=== PATIENT | male | born 1980 | race Caucasian/White ===

== ENCOUNTER 2018-01-08 16:09 | Inpatient (IN) | payer BC ==
[2018-01-08 16:50] LABS: ADD MAN DIFF? NO
[2018-01-08] MEDS: SOD CHLORIDE 0.9% 1,000 ML IV ×2 (16:52→18:26)
[2018-01-08] MEDS: DILTIAZEM 25 MG INJ IV (16:52)
[2018-01-08 16:54] LABS: WHITE BLOOD COUNT 10.3 10^3/ul (4.8-10.8)
[2018-01-08 16:54] LABS: BASOPHILS % 0.4 % (0.0-2.0); EOSINOPHILS # 0.1 10^3/ul (0.0-0.5); EOSINOPHILS % 1.1 % (0.0-7.0); HEMATOCRIT 46.2 % (42.0-52.0); HEMOGLOBIN 16.5 g/dl (14.0-18.0); LYMPHOCYTES % 28.6 % (15.0-51.0); MEAN CORPUSCULAR HEMOGLOBIN 30.6 pg (29.0-33.0); MEAN CORPUSCULAR HGB CONC 35.7 g/dl (32.0-37.0); MEAN CORPUSCULAR VOLUME 85.7 fl (82.0-101.0); MEAN PLATELET VOLUME 10.1 fl (7.4-10.4); MONOCYTE # 1.1 10^3/ul (0.3-0.9); MONOCYTES % 10.5 % (0.0-11.0); NEUTROPHIL # 6.1 10^3/ul (1.6-7.5); NEUTROPHILS % 59.1 % (39.0-77.0); PLATELET COUNT 210 10^3/UL (140-415); RED BLOOD COUNT 5.39 10^6/ul (4.70-6.10); RED CELL DISTRIBUTION WIDTH 12.7 % (11.5-14.5)
[2018-01-08 17:43] LABS: ANION GAP 14 (8-16); BLOOD UREA NITROGEN 14 mg/dl (7-20); CALCIUM 9.5 mg/dl (8.4-10.2); CARBON DIOXIDE 23 mmol/L (21-31); CHLORIDE 110 mmol/L (97-110); CREATININE 0.93 mg/dl (0.61-1.24); GLUCOSE 102 mg/dl (70-220); POTASSIUM 4.4 mmol/L (3.5-5.1); SODIUM 143 mmol/L (135-144)
[2018-01-08 17:55] LABS: B-TYPE NATRIURETIC PEPTIDE 66 PG/ML (0-125); TROPONIN-I < 0.010 ng/ml (0.000-0.120)
[2018-01-08] MEDS ORDERED: IOHEXOL 100 ML (18:07)
[2018-01-08] MEDS ORDERED: SOD CHLORIDE 0.9% 100 ML (18:07)
[2018-01-08] MEDS: ONDANSETRON 4 MG INJ IV (19:39)
[2018-01-08 19:51] LABS: FREE T3 4.39 pg/ml (2.77-5.27)
[2018-01-08] MEDS ORDERED: ONDANSETRON 4 MG INJ IV (20:00)
[2018-01-08] MEDS ORDERED: ACETAMINOPHEN 325 MG TAB PO (20:00)
[2018-01-08] MEDS: ASPIRIN 81 MG TAB PO (20:21)
[2018-01-08 22:37] LABS: CREATINE KINASE 120 IU/L (23-200)
[2018-01-08] MEDS: METOPROLOL 25 MG TAB PO (22:47)
[2018-01-08 22:54] LABS: CK INDEX 0.5; CK-MB 0.55 ng/ml (0.0-2.4); TROPONIN-I < 0.010 ng/ml (0.000-0.120)
[2018-01-09 06:46] LABS: ADD MAN DIFF? NO
[2018-01-09 06:51] LABS: WHITE BLOOD COUNT 10.5 10^3/ul (4.8-10.8)
[2018-01-09 06:51] LABS: BASOPHIL # 0.1 10^3/ul (0.0-0.1); BASOPHILS % 0.5 % (0.0-2.0); EOSINOPHILS # 0.2 10^3/ul (0.0-0.5); EOSINOPHILS % 2.1 % (0.0-7.0); HEMATOCRIT 46.9 % (42.0-52.0); HEMOGLOBIN 16.5 g/dl (14.0-18.0); LYMPHOCYTES # 3.6 10^3/ul (0.8-2.9); LYMPHOCYTES % 33.9 % (15.0-51.0); MEAN CORPUSCULAR HEMOGLOBIN 30.4 pg (29.0-33.0); MEAN CORPUSCULAR HGB CONC 35.2 g/dl (32.0-37.0); MEAN CORPUSCULAR VOLUME 86.5 fl (82.0-101.0); MEAN PLATELET VOLUME 10.4 fl (7.4-10.4); MONOCYTE # 1.1 10^3/ul (0.3-0.9); MONOCYTES % 10.6 % (0.0-11.0); NEUTROPHIL # 5.5 10^3/ul (1.6-7.5); NEUTROPHILS % 52.6 % (39.0-77.0); PLATELET COUNT 214 10^3/UL (140-415); RED BLOOD COUNT 5.42 10^6/ul (4.70-6.10); RED CELL DISTRIBUTION WIDTH 12.9 % (11.5-14.5)
[2018-01-09 07:15] LABS: CREATINE KINASE 84 IU/L (23-200)
[2018-01-09 07:18] LABS: ALANINE AMINOTRANSFERASE 41 IU/L (13-69); ALBUMIN/GLOBULIN RATIO 1.33; ALKALINE PHOSPHATASE 54 IU/L (42-121); ANION GAP 11 (8-16); ASPARTATE AMINO TRANSFERASE 32 IU/L (15-46); BILIRUBIN,INDIRECT 0.6 mg/dl (0-1.1); BILIRUBIN,TOTAL 0.6 mg/dl (0.2-1.3); BLOOD UREA NITROGEN 13 mg/dl (7-20); CALCIUM 8.9 mg/dl (8.4-10.2); CARBON DIOXIDE 26 mmol/L (21-31); CHLORIDE 110 mmol/L (97-110); CHOL/HDL RATIO 5.7 RATIO; CHOLESTEROL 166 mg/dl (100-200); CREATININE 0.96 mg/dl (0.61-1.24); GLUCOSE 95 mg/dl (70-220); HDL CHOLESTEROL 29 mg/dl (27-67); LDL CHOLESTEROL,CALCULATED 99 mg/dl; POTASSIUM 4.1 mmol/L (3.5-5.1); SODIUM 143 mmol/L (135-144); TRIGLYCERIDES 190 mg/dl (0-149)
[2018-01-09 07:27] LABS: CK INDEX 0.5; CK-MB 0.41 ng/ml (0.0-2.4); TROPONIN-I < 0.010 ng/ml (0.000-0.120)
[2018-01-09 08:06] LABS: HEMOGLOBIN A1C 5.4 % (0-5.9)
[2018-01-09] MEDS: ASPIRIN (EC) 81 MG TAB PO (08:47)
[2018-01-09] MEDS: ENOXAPARIN 40 MG/0.4 ML SYG SC (08:48)
[2018-01-09] MEDS: METOPROLOL 25 MG TAB PO ×2 (09:30→20:06)
[2018-01-09 10:47] LABS: URIC ACID 8.6 mg/dl (3.1-7.9)
[2018-01-09 13:15] LABS: AMPHETAMINE/METHAMPHETAMINE Negative (NEGATIVE); BARBITURATES Negative (NEGATIVE); BENZODIAZEPINES Negative (NEGATIVE); CANNABINOIDS Negative (NEGATIVE); COCAINE Negative (NEGATIVE); OPIATES Negative (NEGATIVE)
[2018-01-09] MEDS: RIVAROXABAN 20 MG TABLET PO (20:05)
[2018-01-09] MEDS: MAGNESIUM SULFATE 2 GM/50 ML 50 ML IVPB (20:08)
[2018-01-10] MEDS: METOPROLOL 25 MG TAB PO (08:13)
[2018-01-10] MEDS: ASPIRIN (EC) 81 MG TAB PO (08:21)
[2018-01-10 08:47] LABS: ADD MAN DIFF? NO
[2018-01-10 08:50] LABS: WHITE BLOOD COUNT 10.1 10^3/ul (4.8-10.8)
[2018-01-10 08:50] LABS: BASOPHIL # 0.1 10^3/ul (0.0-0.1); BASOPHILS % 0.5 % (0.0-2.0); EOSINOPHILS # 0.2 10^3/ul (0.0-0.5); EOSINOPHILS % 1.7 % (0.0-7.0); HEMATOCRIT 50.8 % (42.0-52.0); HEMOGLOBIN 17.5 g/dl (14.0-18.0); LYMPHOCYTES # 2.7 10^3/ul (0.8-2.9); LYMPHOCYTES % 26.6 % (15.0-51.0); MEAN CORPUSCULAR HEMOGLOBIN 29.8 pg (29.0-33.0); MEAN CORPUSCULAR HGB CONC 34.4 g/dl (32.0-37.0); MEAN CORPUSCULAR VOLUME 86.5 fl (82.0-101.0); MEAN PLATELET VOLUME 10.1 fl (7.4-10.4); MONOCYTE # 1.1 10^3/ul (0.3-0.9); MONOCYTES % 11.2 % (0.0-11.0); NEUTROPHILS % 59.6 % (39.0-77.0); PLATELET COUNT 208 10^3/UL (140-415); RED BLOOD COUNT 5.87 10^6/ul (4.70-6.10); RED CELL DISTRIBUTION WIDTH 12.8 % (11.5-14.5)
[2018-01-10 09:14] LABS: PHOSPHORUS 3.6 mg/dl (2.5-4.9)
[2018-01-10 09:14] LABS: ANION GAP 13 (8-16); BLOOD UREA NITROGEN 17 mg/dl (7-20); CALCIUM 9.3 mg/dl (8.4-10.2); CARBON DIOXIDE 28 mmol/L (21-31); CHLORIDE 105 mmol/L (97-110); CREATININE 1.12 mg/dl (0.61-1.24); GLUCOSE 103 mg/dl (70-220); MAGNESIUM 2.3 mg/dl (1.7-2.5); POTASSIUM 4.8 mmol/L (3.5-5.1); SODIUM 141 mmol/L (135-144)
== END 2018-01-10 16:20 | disposition home or self-care (01) | DRG 310 ==
LOC: E/R 16:09 → MS4 21:34
DX: I48.0 Paroxysmal atrial fibrillation (principal); M1A.9XX0 Chronic gout, unspecified, without tophus (tophi); Z79.02 Long term (current) use of antithrombotics/antiplatelets
CPT/HCPCS: 36415; 71045; 71275; 80048; 80053; 80061; 80307; 82550; 82553; 83036; 83735; 83880; 84100; 84439; 84443; 84481; 84484; 84560; 85025; 93005; 93306; 96374; 96375; 99291-25

== ENCOUNTER 2018-01-29 21:59 | Observation (INO) | payer BC ==
[2018-01-29] MEDS: DILTIAZEM 25 MG INJ IV ×2 (23:30→23:33)
[2018-01-29] MEDS ORDERED: LORAZEPAM 2 MG INJ IV (23:30)
[2018-01-29] MEDS: SOD CHLORIDE 0.9% 1,000 ML IV (23:31)
[2018-01-29 23:32] LABS: ADD MAN DIFF? NO
[2018-01-29 23:36] LABS: BASOPHIL # 0.1 10^3/ul (0.0-0.1); BASOPHILS % 0.5 % (0.0-2.0); EOSINOPHILS # 0.2 10^3/ul (0.0-0.5); EOSINOPHILS % 1.9 % (0.0-7.0); HEMATOCRIT 44.3 % (42.0-52.0); HEMOGLOBIN 15.6 g/dl (14.0-18.0); IMMATURE GRANS #M 0.03 10^3/ul; IMMATURE GRANS % (M) 0.3 %; LYMPHOCYTES # 3.1 10^3/ul (0.8-2.9); LYMPHOCYTES % 33.5 % (15.0-51.0); MEAN CORPUSCULAR HEMOGLOBIN 30.4 pg (29.0-33.0); MEAN CORPUSCULAR HGB CONC 35.2 g/dl (32.0-37.0); MEAN CORPUSCULAR VOLUME 86.2 fl (82.0-101.0); MEAN PLATELET VOLUME 10.4 fl (7.4-10.4); MONOCYTE # 1.2 10^3/ul (0.3-0.9); MONOCYTES % 12.4 % (0.0-11.0); NEUTROPHIL # 4.8 10^3/ul (1.6-7.5); NEUTROPHILS % 51.4 % (39.0-77.0); PLATELET COUNT 188 10^3/UL (140-415); RED BLOOD COUNT 5.14 10^6/ul (4.70-6.10); RED CELL DISTRIBUTION WIDTH 12.8 % (11.5-14.5)
[2018-01-29 23:36] LABS: WHITE BLOOD COUNT 9.3 10^3/ul (4.8-10.8)
[2018-01-30 00:10] LABS: ALANINE AMINOTRANSFERASE 28 IU/L (13-69); ALBUMIN 4.5 g/dl (3.3-4.9); ALKALINE PHOSPHATASE 81 IU/L (42-121); ANION GAP 19 (8-16); ASPARTATE AMINO TRANSFERASE 25 IU/L (15-46); BILIRUBIN,INDIRECT 0.2 mg/dl (0-1.1); BILIRUBIN,TOTAL 0.2 mg/dl (0.2-1.3); BLOOD UREA NITROGEN 16 mg/dl (7-20); CARBON DIOXIDE 22 mmol/L (21-31); CHLORIDE 105 mmol/L (97-110); CREATININE 1.03 mg/dl (0.61-1.24); ETHANOL < 10.0 mg/dl; GLUCOSE 103 mg/dl (70-220); POTASSIUM 3.5 mmol/L (3.5-5.1); SODIUM 142 mmol/L (135-144); TOTAL PROTEIN 7.5 g/dl (6.1-8.1)
[2018-01-30 00:11] LABS: B-TYPE NATRIURETIC PEPTIDE 18 PG/ML (0-125); TROPONIN-I < 0.010 ng/ml (0.000-0.120)
[2018-01-30] MEDS ORDERED: NITROGLYCERIN (SL) 0.4 MG TAB SL (06:00)
[2018-01-30] MEDS ORDERED: NACL 0.9% 3 ML SYG IV (06:00)
[2018-01-30] MEDS ORDERED: ACETAMINOPHEN 325 MG TAB PO (06:00)
[2018-01-30] MEDS ORDERED: DOCUSATE SODIUM 100 MG CAP PO (06:00)
[2018-01-30] MEDS ORDERED: ONDANSETRON 4 MG TAB PO (06:00)
[2018-01-30] MEDS ORDERED: BISACODYL (EC) 5 MG TAB PO (06:00)
[2018-01-30 06:13] LABS: ADD MAN DIFF? NO
[2018-01-30 06:23] LABS: BASOPHILS % 0.4 % (0.0-2.0); EOSINOPHILS # 0.1 10^3/ul (0.0-0.5); EOSINOPHILS % 1.7 % (0.0-7.0); HEMATOCRIT 42.3 % (42.0-52.0); HEMOGLOBIN 14.7 g/dl (14.0-18.0); IMMATURE GRANS #M 0.03 10^3/ul; IMMATURE GRANS % (M) 0.4 %; LYMPHOCYTES # 2.9 10^3/ul (0.8-2.9); LYMPHOCYTES % 35.3 % (15.0-51.0); MEAN CORPUSCULAR HEMOGLOBIN 29.8 pg (29.0-33.0); MEAN CORPUSCULAR HGB CONC 34.8 g/dl (32.0-37.0); MEAN CORPUSCULAR VOLUME 85.8 fl (82.0-101.0); MEAN PLATELET VOLUME 10.4 fl (7.4-10.4); MONOCYTE # 0.8 10^3/ul (0.3-0.9); MONOCYTES % 9.5 % (0.0-11.0); NEUTROPHIL # 4.4 10^3/ul (1.6-7.5); NEUTROPHILS % 52.7 % (39.0-77.0); PLATELET COUNT 158 10^3/UL (140-415); RED BLOOD COUNT 4.93 10^6/ul (4.70-6.10); RED CELL DISTRIBUTION WIDTH 13.1 % (11.5-14.5)
[2018-01-30 06:23] LABS: WHITE BLOOD COUNT 8.3 10^3/ul (4.8-10.8)
[2018-01-30 06:43] LABS: CREATINE KINASE 82 IU/L (23-200)
[2018-01-30 06:46] LABS: ALANINE AMINOTRANSFERASE 29 IU/L (13-69); ALBUMIN 3.7 g/dl (3.3-4.9); ALBUMIN/GLOBULIN RATIO 1.32; ALKALINE PHOSPHATASE 56 IU/L (42-121); ANION GAP 12 (8-16); ASPARTATE AMINO TRANSFERASE 22 IU/L (15-46); BILIRUBIN,INDIRECT 0.3 mg/dl (0-1.1); BILIRUBIN,TOTAL 0.3 mg/dl (0.2-1.3); BLOOD UREA NITROGEN 13 mg/dl (7-20); CALCIUM 8.5 mg/dl (8.4-10.2); CARBON DIOXIDE 25 mmol/L (21-31); CHLORIDE 110 mmol/L (97-110); CREATININE 0.88 mg/dl (0.61-1.24); GLUCOSE 98 mg/dl (70-220); POTASSIUM 4.1 mmol/L (3.5-5.1); SODIUM 143 mmol/L (135-144); TOTAL PROTEIN 6.5 g/dl (6.1-8.1)
[2018-01-30 06:54] LABS: CK INDEX 0.4; CK-MB 0.32 ng/ml (0.0-2.4)
[2018-01-30 11:35] LABS: CREATINE KINASE 72 IU/L (23-200)
[2018-01-30 11:41] LABS: CK INDEX 0.3; CK-MB < 0.22 ng/ml (0.0-2.4); TROPONIN-I < 0.010 ng/ml (0.000-0.120)
[2018-01-30] MEDS: SOD CHLORIDE 0.45% 1,000 ML IV (11:49)
[2018-01-30] MEDS: PANTOPRAZOLE 40 MG INJ IV (13:00)
[2018-01-30] MEDS: FAMOTIDINE 20 MG TAB PO ×2 (13:00→22:42)
[2018-01-30] MEDS: RIVAROXABAN 20 MG TABLET PO (17:30)
[2018-01-30] MEDS: IOHEXOL 100 ML (21:10)
[2018-01-30] MEDS: SOD CHLORIDE 0.9% 100 ML (21:10)
[2018-01-30] MEDS ORDERED: NITROGLYCERIN AEROSOL (4.9 GM) (22:05)
[2018-01-30] MEDS ORDERED: NITROGLYCERIN AEROSOL (4.9 GM) SL (22:30)
[2018-01-30] MEDS: NITROGLYCERIN AEROSOL (4.9 GM) SL (23:00)
[2018-01-31] MEDS: SOD CHLORIDE 0.45% 1,000 ML IV (06:37)
[2018-01-31 08:03] LABS: ADD MAN DIFF? NO
[2018-01-31 08:05] LABS: BASOPHILS % 0.4 % (0.0-2.0); EOSINOPHILS # 0.2 10^3/ul (0.0-0.5); EOSINOPHILS % 1.6 % (0.0-7.0); HEMATOCRIT 46.6 % (42.0-52.0); IMMATURE GRANS #M 0.03 10^3/ul; IMMATURE GRANS % (M) 0.3 %; LYMPHOCYTES # 3.4 10^3/ul (0.8-2.9); LYMPHOCYTES % 36.4 % (15.0-51.0); MEAN CORPUSCULAR HEMOGLOBIN 29.7 pg (29.0-33.0); MEAN CORPUSCULAR HGB CONC 34.3 g/dl (32.0-37.0); MEAN CORPUSCULAR VOLUME 86.5 fl (82.0-101.0); MEAN PLATELET VOLUME 10.4 fl (7.4-10.4); MONOCYTE # 0.9 10^3/ul (0.3-0.9); MONOCYTES % 9.1 % (0.0-11.0); NEUTROPHIL # 4.9 10^3/ul (1.6-7.5); NEUTROPHILS % 52.2 % (39.0-77.0); PLATELET COUNT 172 10^3/UL (140-415); RED BLOOD COUNT 5.39 10^6/ul (4.70-6.10); RED CELL DISTRIBUTION WIDTH 13.2 % (11.5-14.5)
[2018-01-31 08:05] LABS: WHITE BLOOD COUNT 9.4 10^3/ul (4.8-10.8)
[2018-01-31 08:21] LABS: ANION GAP 16 (8-16); BLOOD UREA NITROGEN 16 mg/dl (7-20); CALCIUM 9.5 mg/dl (8.4-10.2); CARBON DIOXIDE 27 mmol/L (21-31); CHLORIDE 106 mmol/L (97-110); CREATININE 1.05 mg/dl (0.61-1.24); GLUCOSE 93 mg/dl (70-220); PHOSPHORUS 3.8 mg/dl (2.5-4.9); SODIUM 144 mmol/L (135-144)
[2018-01-31] MEDS: FAMOTIDINE 20 MG TAB PO (08:40)
== END 2018-01-31 12:54 | disposition home or self-care (01) ==
LOC: E/R 21:59 → TEL 01-30 02:12
DX: R07.9 Chest pain, unspecified (principal); I48.0 Paroxysmal atrial fibrillation; Z79.01 Long term (current) use of anticoagulants; M10.9 Gout, unspecified; F41.9 Anxiety disorder, unspecified
CPT/HCPCS: 36415; 71045; 75574; 80048; 80053; 80307; 82550; 82553; 83735; 83880; 84100; 84484; 85025; 87081; 93005; 99285-25; G0378